=== PATIENT | male | born 1985 | race African-American/Black ===

== ENCOUNTER 2017-08-20 04:19 | Emergency (ER) | payer OTHER ==
[~2017-08-20] VITALS: Ht 177.8 cm; Wt 95.3 kg
--- NOTE | ~2017-08-20 | EKG ---
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
[2017-08-20] MEDS ORDERED: MULTIVITAMINS1 EAC7 PO (04:35)
[2017-08-20 04:50] LABS: HEMATOCRIT 42.6 % (42.0-52.0); HEMOGLOBIN 14.5 gm/dL (14.0-18.0); MCH 29.2 pg (26.0-34.0); MCV 85.8 fL (80.0-100.0); RBC 4.97 mil/uL (4.50-6.00); RDW 13.4 % (10.5-14.5); WBC 4.8 thou/uL (4.0-11.0)
[2017-08-20 04:56] LABS: CALCIUM 9.1 mg/dL (8.5-10.1); POTASSIUM 3.7 mmol/L (3.5-5.1)
[2017-08-20 05:02] LABS: ALBUMIN 3.9 g/dL (3.4-5.0); TOTAL BILIRUBIN 0.3 mg/dL (<0.1-1.0); TOTAL PROTEIN 8.3 g/dL (6.4-8.2)
== END 2017-08-20 05:30 | disposition home or self-care (01) ==
LOC: ER 04:19
PROVIDERS: Emergency Medicine
DX: E86.0 Dehydration (principal); F17.210 Nicotine dependence, cigarettes, uncomplicated

== ENCOUNTER 2017-08-26 20:35 | Emergency (ER) | payer OTHER ==
[~2017-08-26] VITALS: Ht 177.8 cm; Wt 95.3 kg
--- NOTE | ~2017-08-26 | EKG ---
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: JOSEFA : 1985 Requested By: Melinda Gonzalez Order Number: [id number] MD: Jonatan Rivera Measurements Intervals [place] Rate: 96 P: 18 WY: 155 QRS: 10 QRSD: 89 T: 42 QT: 369 QTc: 467 Interpretive Statements Sinus rhythm No significant abnormality Compared to ECG 08/20/2017 04:54:27 No significant changes Electronically Signed On 08-28-2017 15:22:41 [employer] OFFICER by Jonatan Rivera [email or web address] <ELECTRONICALLY SIGNED> By: Jonatan Rivera MD, [facility]GED WITH [facility] 08/28/17 1522 [id number] 49 Jonatan Rivera MD, FACC /EPI
[~2017-08-26 20:35] MED LIST: MULTIVITAMINS1 EAC7 PO
[2017-08-26 21:00] LABS: HEMATOCRIT 42.1 % (42.0-52.0); HEMOGLOBIN 14.4 gm/dL (14.0-18.0); MCH 29.4 pg (26.0-34.0); MCHC 34.2 g/dL (28.0-37.0); MCV 85.9 fL (80.0-100.0); PLATELET COUNT 190 thou/uL (150-400); RDW 13.5 % (10.5-14.5); WBC 4.9 thou/uL (4.0-11.0)
[2017-08-26 21:08] LABS: ANION GAP 8 mmol/L (7-16); BUN 12 mg/dL (7-18); CHLORIDE 101 mmol/L (98-107); CO2 28 mmol/L (21-32); CREATININE 0.9 mg/dL (0.7-1.3); GLUCOSE 110 mg/dL (74-106); POTASSIUM 3.2 mmol/L (3.5-5.1); SODIUM 137 mmol/L (136-145)
[2017-08-26 21:13] LABS: ALBUMIN 3.9 g/dL (3.4-5.0); DIRECT BILIRUBIN < 0.1 mg/dL (<0.1-0.3); SGOT 24 U/L (15-37); SGPT 53 U/L (30-65); TOTAL BILIRUBIN 0.3 mg/dL (<0.1-1.0); TOTAL PROTEIN 8.2 g/dL (6.4-8.2)
[2017-08-26 21:16] LABS: ABSOLUTE NEUTROPHILS 2.3 thou/uL (1.4-8.2)
[2017-08-26 21:37] LABS: URINE BILIRUBIN NEGATIVE (Negative); URINE BLOOD NEGATIVE (Negative); URINE CLARITY CLEAR; URINE COLOR YELLOW; URINE GLUCOSE-RANDOM* NEGATIVE (Negative); URINE KETONES NEGATIVE (Negative); URINE LEUKOCYTES NEGATIVE (Negative); URINE NITRITE NEGATIVE (Negative); URINE PROTEIN (DIPSTICK) NEGATIVE (Negative); URINE SPECIFIC GRAVITY 1.025 (1.005-1.035); URINE UROBILINOGEN 0.2 E.U./dl (0.2-1.0)
[2017-08-26] MEDS ORDERED: DULCOLAX5 MG PO (21:40)
[2017-08-26] MEDS ORDERED: ATIVAN1 MG PO (21:56)
== END 2017-08-26 22:14 | disposition home or self-care (01) ==
LOC: ER 20:35
PROVIDERS: Emergency Medicine
DX: K59.00 Constipation, unspecified (principal); F41.9 Anxiety disorder, unspecified; R42 Dizziness and giddiness; E87.6 Hypokalemia; F41.0 Panic disorder [episodic paroxysmal anxiety]; F17.210 Nicotine dependence, cigarettes, uncomplicated